=== PATIENT | female | born 1965 | race Hispanic/Latino ===

== ENCOUNTER → 2023-01-06 | Outpatient (CLI) | payer OTHER, MEDICARE | END | disposition home or self-care (01) | LOC: SHCH 15:02 | PROVIDERS: ATTEND Student in an Organized Health Care Education/Training Program | DX: I35.8 Other nonrheumatic aortic valve disorders (principal); I25.10 Atherosclerotic heart disease of native coronary artery without angina pectoris; I11.9 Hypertensive heart disease without heart failure; E11.9 Type 2 diabetes mellitus without complications; E78.5 Hyperlipidemia, unspecified | CPT/HCPCS: 93306 ==

== ENCOUNTER → 2023-01-20 | Outpatient (CLI) | payer OTHER, MEDICARE | END | disposition home or self-care (01) | LOC: SHCH 10:22 → EDUNIT# 11:30 | PROVIDERS: ATTEND Student in an Organized Health Care Education/Training Program | DX: I70.203 Unspecified atherosclerosis of native arteries of extremities, bilateral legs (principal) | CPT/HCPCS: 93925 ==

== ENCOUNTER → 2023-02-19 | Outpatient (CLI) | payer OTHER, MEDICARE ==
[~2023-02-19] MED LIST: REGADENOSON 0.4 MG/5 ML PF SYG IVP ONE
== END | disposition home or self-care (01) ==
LOC: SHCH 08:24
PROVIDERS: ATTEND Student in an Organized Health Care Education/Training Program
DX: R94.39 Abnormal result of other cardiovascular function study (principal); I25.118 Atherosclerotic heart disease of native coronary artery with other forms of angina pectoris; I10 Essential (primary) hypertension; E78.5 Hyperlipidemia, unspecified; E11.9 Type 2 diabetes mellitus without complications; Z95.1 Presence of aortocoronary bypass graft
CPT/HCPCS: 78452; 96374; 93017; J2785; A9500 ×2

== ENCOUNTER → 2023-04-30 | Outpatient (CLI) | payer OTHER, MEDICARE | END | disposition home or self-care (01) | LOC: RAH 09:03 | PROVIDERS: ATTEND Internal Medicine | DX: K80.20 Calculus of gallbladder without cholecystitis without obstruction (principal) | CPT/HCPCS: 76705 ==

== ENCOUNTER → 2023-09-10 | Outpatient (CLI) | payer OTHER, MEDICARE ==
[~2023-09-10] MED LIST changes: +IOHEXOL-350 50ML VIAL IV ONE; -REGADENOSON 0.4 MG/5 ML PF SYG IVP ONE
== END | disposition home or self-care (01) ==
LOC: RAH 09:29
PROVIDERS: ATTEND Internal Medicine
DX: R42 Dizziness and giddiness (principal); R11.2 Nausea with vomiting, unspecified; R51.9 Headache, unspecified; H93.19 Tinnitus, unspecified ear
CPT/HCPCS: 70470; Q9967

== ENCOUNTER → 2024-11-11 | Outpatient (CLI) | payer OTHER, MEDICARE ==
--- NOTE | 2024-11-16 08:45 | HMCSR ---
APPROVED REPORT EXAM: Two-dimensional and M-mode echocardiogram with Doppler and color Doppler. INDICATION ICD: Syncope and collapse R55 2D Dimensions IVSd0.7 (0.7-1.1cm)LVEF(%)43.9 (>50%)LVEF(%, simp.)50 % LVDd5.0 (3.8-5.6cm)FS(%)22 %LA ESV INDEX (BP)33.99 mL/m2 PWd1.1 (0.7-1.1cm)LA (2D)4.6 (1.6-4.0cm) IVSs1.0 cmAo Root(2D)2.6 (2.0-3.7cm) LVDs3.9 (2.5-4.0cm)LVOT diam2.1 (1.8-2.4cm) PWs1.4 cmIVC diam1.2 cm M-Mode Dimensions EPSS1.6 cm LA (MM)5.2 (1.6-4.0cm) Ao Root(MM)2.9 (2.0-3.7cm) Aortic Valve AoV Vmax1.4 m/Aixa Peak GR8.2 mmHgLVOT Vmax0.9 m/s AoV VTI0.3 mAo Mean GR4.6 mmHgLVOT VTI0.18 m CHARLES (VMAX)2.0 cm2AVA (VTI) 2.0 cm2 Mitral Valve MV E Shbl685.9 cm/sDECEL Mxgj946 ms MV A Maeh994.9 cm/sP 1/2 T54 ms E/A ratio0.8MVA (PHT)4.1 cm2 TDI E/E' Ufakem40.6E/E' Lateral8.7 Medial E' Peak V3.00 cm/sLateral E' Peak V12.00 cm/s Pulmonary Valve PV Vmax1.1 m/s Tricuspid Valve TR Vmax2.3 m/sRAP (EST) 8 rnHqZNDE77.3 mmHg TR Peak GR22.3 mmHg Left Ventricle The left ventricle is normal size. There is normal left ventricular wall thickness. LVEF is 50-55%. S tage I diastolic dysfunction. Right Ventricle The right ventricle is normal size. Right ventricular systolic function is moderately reduced. Atria The left atrium is mildly dilated. The right atrium size is normal. Aortic Valve The aortic valve is normal in structure. No aortic regurgitation is present. There is no aortic valvu lar stenosis. Mitral Valve The mitral valve is normal in structure. There is no mitral valve regurgitation noted. There is no mi tral valve stenosis. Tricuspid Valve The tricuspid valve is normal in structure. There is trace of tricuspid valve regurgitation noted. Pulmonic Valve The pulmonary valve is normal in structure. There is no pulmonic valvular regurgitation. Great Vessels The aortic root is normal in size. The IVC is normal in size and collapses <50% with inspiration. Pericardium There is no pericardial effusion. Other Information Quality : Adequate Conclusion The left ventricle is normal size. LVEF is 50-55%. Stage I diastolic dysfunction. The right ventricle is normal size. Right ventricular systolic function is moderately reduced. The left atrium is mildly dilated. The right atrium size is normal. No valvular pathology. There is no pericardial effusion.
== END | disposition home or self-care (01) ==
LOC: SHCH 01:00
PROVIDERS: ATTEND Student in an Organized Health Care Education/Training Program
DX: I51.7 Cardiomegaly (principal); R55 Syncope and collapse
CPT/HCPCS: 93306

== ENCOUNTER → 2024-12-26 | Outpatient (CLI) | payer MEDICARE ==
[2024-12-26 12:20] LABS: HEMOGLOBIN A1C 7.9 % (4.0-6.0)
[2024-12-26 12:43] LABS: ALBUMIN 3.8 g/dL (3.5-5.0); BILIRUBIN,TOTAL 0.6 mg/dL (0.2-1.0); POTASSIUM 4.7 mmol/L (3.5-5.1); TOTAL PROTEIN, SERUM 7.8 g/dL (6.0-8.3)
== END | disposition home or self-care (01) ==
LOC: LAB 08:35
PROVIDERS: ATTEND Student in an Organized Health Care Education/Training Program
DX: I11.9 Hypertensive heart disease without heart failure (principal); E11.65 Type 2 diabetes mellitus with hyperglycemia; E78.5 Hyperlipidemia, unspecified; I70.201 Unspecified atherosclerosis of native arteries of extremities, right leg; R06.02 Shortness of breath; R00.2 Palpitations; R55 Syncope and collapse; Z95.1 Presence of aortocoronary bypass graft
CPT/HCPCS: 36415; 80053; 80061; 83036

== ENCOUNTER → 2025-03-15 | Outpatient (CLI) | payer MEDICARE, MEDICAID ==
--- NOTE | 2025-03-16 08:45 | HMCIMG ---
EXAMINATION: DUPLEX ULTRASOUND EXAMINATION OF THE BILATERAL CAROTID AND VERTEBRAL ARTERIES. CLINICAL HISTORY: Pulsatile tinnitus. COMPARISON: None provided. TECHNIQUE: Real-time ultrasound scan of the bilateral carotid and vertebral arteries, 2-D grayscale, with color Doppler flow and spectral waveform analysis. FINDINGS: Color and spectral Doppler interrogation of the carotid vessels on the right demonstrate peak systolic velocities as follows: CCA (Proximal and distal): 88 and 68 cm/s respectively. Bulb: 97 cm/s. ECA: 76 cm/s. ICA (Proximal, mid, and distal): 124, 140, and 118 cm/s respectively. Vertebral artery demonstrates antegrade flow: 58 cm/s. Right ICA/CCA ratio: 2.2 Peak systolic velocities on the left are as follows: CCA (Proximal and distal): 87 and 67 cm/s respectively. Bulb: 57 cm/s. ECA: 118 cm/s. ICA (Proximal, mid, and distal): 96, 106, and 100 cm/s respectively. Vertebral artery demonstrates antegrade flow: 62 cm/s. Left ICA/CCA ratio: 1.7 Both the common carotid arteries and their branches reveal mild intimal thickening. There are calcified plaques in the right bulb, internal carotid artery, and distal common carotid artery causing about 20% to 30% diameter stenosis. There are calcified plaques in the left bulb causing about 20% to 30% diameter stenosis. IMPRESSION: Mild intimal thickening in the bilateral carotid arteries and their branches. Right ICA/CCA ratio is 2.2 suggesting 50% to 69% stenosis. Recommend CT/MR angiogram. Plaques as described. /[place]
--- NOTE | 2025-03-16 08:45 | HMCIMG ---
EXAMINATION: SOFT TISSUE ULTRASOUND OF THE NECK. CLINICAL HISTORY: Lymphadenopathy. COMPARISON: None. TECHNIQUE: Transverse and longitudinal images were obtained. FINDINGS: There are lymph nodes that measure 0.8 x 0.4 cm, 1.4 x 0.3 cm in the right neck and 1.2 x 0.5 cm, 0.6 x 0.3 cm in the left neck. Hilar echoes are maintained. No increased vascularity. IMPRESSION: Bilateral cervical lymphadenopathy. Recommend CT neck with contrast for further evaluation. /[place]
== END | disposition home or self-care (01) ==
LOC: RAH 15:05
PROVIDERS: ATTEND Family Medicine
DX: H93.A9 Pulsatile tinnitus, unspecified ear (principal); R59.0 Localized enlarged lymph nodes; R55 Syncope and collapse
CPT/HCPCS: 76536; 93880

== ENCOUNTER → 2025-04-05 | Outpatient (CLI) | payer MEDICARE ==
[~2025-04-05] MED LIST changes: -IOHEXOL-350 50ML VIAL IV ONE; +IOHEXOL-350 75 ML VIAL IV ONE
--- NOTE | 2025-04-05 13:29 | HMCIMG ---
EXAM: CT Neck without Intravenous Contrast. CLINICAL HISTORY: 59-year-old female with enlarged lymph nodes. TECHNIQUE: Axial computed tomography images of the neck without intravenous contrast. Sagittal and coronal reformations performed. Dose reduction technique was used including one or more of the following: automated exposure control, adjustment of mA and kV according to patient size, and/or iterative reconstruction. CONTRAST: None. COMPARISON: None provided. FINDINGS: PHARYNX: The nasopharynx, oropharynx, and hypopharynx are unremarkable. No pharyngeal mucosal based mass lesions. LARYNX: The larynx is unremarkable. Normal epiglottis. RETROPHARYNGEAL SPACE: No retropharyngeal soft tissue swelling or gas. SALIVARY GLANDS: The parotid, submandibular, and sublingual glands are unremarkable. LYMPH NODES: No enlarged lymph nodes. THYROID: The thyroid gland is unremarkable. No nodule. BONES: No acute osseous abnormality. VASCULATURE: Moderate atherosclerotic calcification of the left carotid bulb and internal carotid artery with narrowing of 50 to 70%. Follow-up with ultrasound recommended. SOFT TISSUES: Soft tissue calcification. IMPRESSION: 1. No enlarged lymph nodes. 2. Moderate atherosclerotic calcification of the left carotid bulb and internal carotid artery with narrowing of 50 to 70%. Follow-up with ultrasound recommended. /[place]
== END | disposition home or self-care (01) ==
LOC: RAH 11:00
PROVIDERS: ATTEND Family Medicine
DX: I65.22 Occlusion and stenosis of left carotid artery (principal)
CPT/HCPCS: 70492; Q9967

== ENCOUNTER 2025-07-06 14:41 | Emergency (ER) | payer MEDICARE, MEDICAID ==
[~2025-07-06] VITALS: Ht 160 cm; Wt 77.1 kg
--- NOTE | 2025-07-06 14:54 | ERN ---
ED Note History of Present Illness Stated Complaint: LT KNEE PAIN Chief Complaint: Knee Injury/Swelling Time Seen by MD: 14:44 Dictation: PATIENT IS A 59-YEAR-OLD FEMALE HERE WITH HER WITH COMPLAINTS OF LEFT KNEE PAIN AND DIAGNOSED WITH A PATELLA FRACTURE AT [facility] ON 07/04. SHE AND HER STATE THEY WERE IN [facility] PICKING UP SOME MEDICAL RECORDS THERE TO BRING BACK HOME TO [place], SHE TRIPPED IN A HOLE AND FELL AND LANDED ON HER KNEE. DID NOT WANT TO GO TO A HOSPITAL IN [place], CAME BACK HOME THAT SAME DAY AND WENT TO [facility] HAS RESULTS THAT SHOW SHE HAD A PATELLA FRACTURE NOT REFERRED TO A ORTHOPEDIC SURGEON NOR WAS SHE GIVEN PAIN MANAGEMENT. SHE DOES HAVE A KNEE IMMOBILIZER IN PLACE AND WAS GIVEN CRUTCHES AT THE HOSPITAL. DISTAL NEUROVASCULAR CMS INTACT. SHE STATES SHE SAW HER PRIMARY CARE DOCTOR TODAY AND THEY TOLD HER OB SEVERAL DAYS FOR FOUR THEY COULD GET IN TO SEE HIM. Allergies: Coded Allergies: No Known Allergies (Unverified Allergy, Unknown, 07/06/25) Home Meds Active Scripts Ibuprofen (Ibuprofen 800 mg Tab) 800 Mg Tab, 800 MG PO Q8H PRN for fever or pain, #30 TAB 0 Refills TAKE DIRECTED WITH FOOD NEEDED FOR PAIN Prov:ABDON SALGADO 07/06/25 Past Medical History Past Medical History: Other Surgical History: Other History: Not Applicable RN Note Reviewed/Agreed w/PFSH: Yes Review of System Dictation CONSTITUTIONAL: NEGATIVE EXCEPT FOR HPI HEAD/FACE: NEGATIVE EXCEPT FOR HPI EENT: NEGATIVE EXCEPT FOR HPI RESPIRATORY: NEGATIVE EXCEPT FOR HPI GASTROINTESTINAL/ABDOMINAL: NEGATIVE EXCEPT FOR HPI GENITOURINARY: NEGATIVE EXCEPT FOR HPI MUSCULOSKELETAL: NEGATIVE EXCEPT FOR HPI LEFT KNEE PAIN/SWELLING WITH A IMM OBILIZER IN PLACE INTEGUMENTARY: NEGATIVE EXCEPT FOR HPI NEUROLOGICAL/PSYCH: NEGATIVE EXCEPT FOR HPI HEMATOLOGIC/LYMPHATIC: NEGATIVE EXCEPT FOR HPI ALL SYSTEMS NEGATIVE, EXCEPT NOTED ABOVE. 13 POINT REVIEW OF SYSTEMS ASSESSED AND ALL NEGATIVE EXCEPT FOR ABOVE. Initial Vital Sign VS Vital Signs Date Time Temp Pulse Resp B/P (MAP) Pulse Ox O2 Delivery O2 Flow Rate FiO2 07/06/25 14:43 98.2 82 20 115/54 97 Room Air 0 07/06/25 15:20 21 Physical Exam Dictation VITAL SIGNS REVIEWED GENERAL APPEARANCE: ALERT, ORIENTED X 3, N MILD ACUTE DISTRESS, WELL DEVELOPED, NOURISHED. PAIN FOR OVER 10 HEAD AND FACE: NON-TRAUMATIC. EYES: PERRL, PINK CONJUNCTIVAS, EYELID NO TRAUMA, ANTERIOR CHAMBER WITH ARCUS SENILIS. EARS: PINNAS INTACT AND NO SIGNS OF TRAUMA OR ERYTHEMA EAR CANALS CLEAR AND NO DISCHARGE TM NO ERYTHEMA NOSE: NO DISCHARGE, NO BLEEDING. OROPHARYNX: MOUTH NORMAL, TONGUE PINK, PHARYNX CLEAR,NO ERYTHEMA, TONSILS NO EXUDATES, NO ABSCESSES NOTED, MUCOUS MEMBRANE MOIST NECK: SUPPLE, NON-TENDER, NO THYROMEGALY, NO MASSES, NO JVD, NO BRUITS BREAST:DEFERRED CHEST:NO TENDERNESS, NO CREPITUS, NO PARADOXICAL MOVEMENT, NO RETRACTIONS LUNGS:CLEAR, WELL-VENTILATED, SYMMETRIC, NO RALES, NO WHEEZING, NO RHONCHI, NO STRIDOR, GOOD BREATH SOUNDS BILATERALLY HEART: REGULAR RATE, REGULAR RHYTHM, NO MURMUR, NO GALLOPS VASCULAR: NO PERIPHERAL EDEMA, ABDOMEN: SOFT, POSITIVE BOWEL SOUNDS, NONDISTENDED, NO GUARDING, NONTENDER, NO REBOUND, NO MASSES NO HEPATOMEGALY, NO SPLENOMEGALY, NO BATISTA'S SIGN, NO HERNIAS. RECTAL: DEFERRED GENITAL: DEFERRED NEUROLOGICAL: LEFT ANTERIOR KNEE PAIN TENDERNESS. IMMOBILIZER INTACT AT THIS TIME SKIN: COLOR PINK, DRY, NO TURGOR, NO RASH, NO LACERATIONS, NO ABRASIONS, NO CONTUSIONS. LYMPHATIC: DEFERRED Results (Laboratory/Radiology) Laboratory/Radiology 1525/LEFT KNEE X-RAY DEMONSTRATES PRIOR DISTAL FEMUR FRACTURE. ACUTE PATELLA FRACTURE NONDISPLACED Labs Reviewed?: Yes ED Course ED Course Orders Procedure Category Date Status Time Knee 3vws Lt RAD 07/06/25 Taken 14:51 Ibuprofen 800 Mg Tab PHA 07/06/25 Complete (Motrin) 15:00 Current Medications Medications (Trade) Dose Ordered Sig/Rosette Route PRN Reason Start Time Stop Time Status Last Admin Dose Admin Ibuprofen (moTRIN) 800 mg ONCE ONCE PO 07/06/25 15:00 07/06/25 15:01 DC 07/06/25 15:27 Vital Signs Date Time Temp Pulse Resp B/P (MAP) Pulse Ox O2 Delivery O2 Flow Rate FiO2 07/06/25 15:20 98.2 82 20 115/54 98 Room Air* 0 21 07/06/25 14:43 98.2 82 20 115/54 97 Room Air 0 1525/PAIN IS 2/10. DISTAL NEUROVASCULAR CMS INTACT AND PATIENT HAS A IMMOBILIZER IN PLACE FROM HOME. SHE WILL BE GIVEN IBUPROFEN TO TAKE AT HOME., SHE WILL BE REFERRED TO DR. CARLOS/ORTHOPEDIC SURGERY. CONTINUE WITH IMMOBILIZER AND CRUTCHES NO WEIGHT-BEARING UNTIL CLEARED BY DR. CARLOS CALL FOR AN APPOINTMENT 1530/PATIENT AND SHOWN IMAGE OF PATELLAR FRACTURE. QUESTIONS IN Medical Decision Making MDM MEDICAL DECISION-MAKING BASED ON X-RAY OF LEFT KNEE AND PAIN MANAGEMENT. KNEE IMMOBILIZER IN PLACE FROM HOME. PATIENT HAS A AN PATELLAR FRACTURE NONDISPLACED NEUROVASCULAR CMS INTACT TO LEFT LEG WITH A IMMOBILIZER IN PLACE. PATIENT HAS CRUTCHES AT HOME IBUPROFEN WE WILL BE PRESCRIBED AND PATIENT WILL BE PROVIDED THE NAME OF DR. CARLOS FOR FOLLOW UP DX & DISP Disposition: Discharge Departure Impression: Primary Impression: Left patella fracture Additional Impression: Fall Condition: Stable Scripts Ibuprofen (Ibuprofen 800 mg Tab) 800 Mg Tab 800 MG PO Q8H PRN for fever or pain, #30 TAB 0 Refills TAKE DIRECTED WITH FOOD NEEDED FOR PAIN Prov: ABDON SALGADO 07/06/25 Additional Instructions: FOLLOW-UP WITH PRIMARY CARE PROVIDER IN 1 TO 2 DAYS. TAKE MEDICATIONS DIRECTED HERE IN THE EMERGENCY ROOM. OKAY TO CONTINUE HOME MEDICATIONS UNLESS OTHERWISE DISCUSSED DURING YOUR VISIT IN THE EMERGENCY ROOM TODAY. RETURN TO [facility] EMERGENCY ROOM IF SYMPTOMS WORSEN OR IF THERE IS NO IMPROVEMENT. CALL 911 IF YOU NEED IMMEDIATE ASSISTANCE. TAKE TYLENOL OR MOTRIN [id number] NEEDED AND IF NO CONTRAINDICATIONS ARE PRESENT. INCREASE ORAL HYDRATION. A WOUND CULTURE OR URINE CULTURE WAS ORDERED HERE IN THE EMERGENCY ROOM DEPARTMENT PLEASE FOLLOW-UP WITH PRIMARY CARE PROVIDER AND ADVISE THEM TO GET REPEAT PORTS FROM OUR FACILITY. IF YOU HAD ANY JONEL WRAP/SPLINTS THAT WERE APPLIED HERE, PLEASE DO NOT REMOVE THEM UNTIL YOU SEE YOUR PRIMARY CARE OR SPECIALTY. CONTINUE WITH KNEE IMMOBILIZER AND CRUTCHES FROM [facility]. NO WEIGHT-BEARING ON LEFT LEG UNTIL CLEARED BY ORTHOPEDIC SURGEON, CALL HIM TODAY FOR AN APPOINTMENT NEXT WEEK. KEEP LEG ELEVATED MUCH POSSIBLE. TAKE IBUPROFEN WITH FOOD NEEDED FOR PAIN. Referrals: GLORIA DAUGHERTY MD (PCP) MARINO CARLOS MD Time of Disposition: 15:29 I have reviewed the case, and I agree with, Diagnosis and Plan ABDON SALGADO Jul 06, 2025 14:54
[2025-07-06 15:20] VITALS: BP 115/54; PULSE 82; RESP 20; TEMP 98.3; O2SAT 98
[2025-07-06] MEDS ORDERED: IBUP-2077 PO (15:30)
--- NOTE | 2025-07-07 08:57 | HMCIMG ---
KNEE 3VWS LT REASON: LEFT KNEE PAIN STATUS POST FALL THREE DAYS AGO. DIAGNOSED WITH PATELLAR FX TECHNIQUE: 4 views were obtained. FINDINGS: There is no evidence of fracture or dislocation. Osteopenia of the osseous structure. There is ORIF of distal left femur with distal left femur deformity with orthopedic plates on the medial aspect and multiple screws transfixing it. There is mild to moderate tricompartmental osteoarthropathy with narrowing and chondrocalcinosis. There is no joint effusion. The soft tissues appear unremarkable. There is no evidence of a radiopaque foreign body. There is vascular calcification suggesting of small vessel disease involving the trifurcation vessel. IMPRESSION: 1. No acute fracture or dislocation 2. Status post ORIF of the distal left femur with orthopedic plates and screws in place 3. Moderate tricompartmental osteoarthropathy 4. Osteopenia 5. Vascular calcification suggesting of small vessel disease
== END 2025-07-06 15:38 | disposition home or self-care (01) ==
LOC: EDH 14:41
DX: S82.002A Unspecified fracture of left patella, initial encounter for closed fracture (principal); W18.09XA Striking against other object with subsequent fall, initial encounter; Y93.89 Activity, other specified; Y92.89 Other specified places as the place of occurrence of the external cause; Y99.8 Other external cause status
CPT/HCPCS: 73562; 99283